=== PATIENT | male | born 1985 | race Caucasian/White ===

== ENCOUNTER 2019-10-23 22:36 | Outpatient (REF) | payer MEDICAID, SELFPAY ==
[2019-10-23 22:18] LABS: Hemoglobin A1C 5.4 % (4.5-6.2)
[2019-10-23 22:28] LABS: ALT 40 U/L (16-63); AST 36 U/L (15-37); Albumin 3.3 g/dL (3.4-5.0); Alkaline Phosphatase 77 U/L (46-116); Anion Gap 5.9 mmol/L (3-11); BUN 10 mg/dL (7-18); Bilirubin, Total 0.5 mg/dL (0.2-1.0); CO2 34.1 mmol/L (21.0-32.0); CREATININE 0.59 mg/dL (0.70-1.30); Calcium 8.8 mg/dL (8.5-10.1); Chloride 101 mmol/L (98-107); Glucose 89 mg/dL (74-106); Potassium 4.3 mmol/L (3.5-5.1); Sodium 141 mmol/L (136-145); Total Protein 7.8 g/dL (6.4-8.2)
== END 2019-10-23 22:56 ==
LOC: NCHCN 22:36
PROVIDERS: PCP Family Medicine; Visit Provider Family Medicine
DX: R73.09 Other abnormal glucose (principal); I10 Essential (primary) hypertension
CPT/HCPCS: 80053; 83036

== ENCOUNTER 2020-10-04 17:18 | Outpatient (REF) | payer MEDICAID, SELFPAY ==
[2020-10-04 21:43] LABS: ALT 29 U/L (16-63); AST 33 U/L (15-37); Albumin 3.2 g/dL (3.4-5.0); Alkaline Phosphatase 62 U/L (46-116); Anion Gap 5.6 mmol/L (3-11); BUN 12 mg/dL (7-18); Bilirubin, Total 0.5 mg/dL (0.2-1.0); CO2 31.4 mmol/L (21.0-32.0); CREATININE 0.67 mg/dL (0.70-1.30); Calcium 8.7 mg/dL (8.5-10.1); Chloride 99 mmol/L (98-107); Glucose 88 mg/dL (74-106); Potassium 4.3 mmol/L (3.5-5.1); Sodium 136 mmol/L (136-145); Total Protein 8.1 g/dL (6.4-8.2)
[2020-10-04 21:47] LABS: COMMENT (LAB VIEW ONLY) 128.07 mg/dL; Microalb ug/mg Crea 6.7 ug/mg Cr
[2020-10-04 21:51] LABS: Hemoglobin A1C 5.5 % (<5.7)
[2020-10-04 22:02] LABS: Vitamin D 25 Total 18.8 ng/ml (30-100)
== END 2020-10-04 17:38 ==
LOC: NCHCN 17:18
PROVIDERS: PCP Family Medicine; Visit Provider Family Medicine
DX: E55.9 Vitamin D deficiency, unspecified (principal); R73.09 Other abnormal glucose; I10 Essential (primary) hypertension; E66.01 Morbid (severe) obesity due to excess calories
CPT/HCPCS: 80053; 82306; 82043; 82570; 83036

== ENCOUNTER 2022-03-29 12:00 | Outpatient (REF) | payer MEDICAID, SELFPAY ==
[2022-03-29 14:45] LABS: HCT 44.5 % (40.0-50.0); HGB 13.6 g/dL (13.5-17.5); MCH 27.5 pg (27.0-33.0); MCHC 30.6 % (32.0-36.0); MCV 90 fL (80-95); MPV 9.8 fL (8.0-11.0); Platelet Count 239 10^3/uL (130-400); RBC 4.94 10^6/uL (4.36-5.78); RDW 13.4 % (11.8-14.1); RDW-SD 44.5 fL; WBC 5.43 10^3/uL (4.4-10.8)
[2022-03-29 15:09] LABS: ALT 36 U/L (16-63); AST 41 U/L (15-37); Albumin 3.3 g/dL (3.4-5.0); Alkaline Phosphatase 80 U/L (46-116); Anion Gap 7.5 mmol/L (3-11); BUN 14 mg/dL (7-18); Bilirubin, Total 0.7 mg/dL (0.2-1.0); CO2 33.5 mmol/L (21.0-32.0); CREATININE 0.7 mg/dL (0.70-1.30); Calcium 8.8 mg/dL (8.5-10.1); Calculated LDL 48 mg/dL (<100); Chloride 100 mmol/L (98-107); Cholesterol 118 mg/dL (<200); Glucose 92 mg/dL (74-106); HDL Cholesterol 61 mg/dL (40-60); Potassium 4.2 mmol/L (3.5-5.1); Sodium 141 mmol/L (136-145); Total Protein 7.9 g/dL (6.4-8.2); Triglyceride 45 mg/dL (<150)
[2022-03-29 15:53] LABS: Hemoglobin A1C 5.7 % (<5.7)
[2022-03-30 15:13] LABS: Vitamin D 25 Total 24.5 ng/mL (30-100)
== END 2022-03-29 12:01 | disposition home or self-care (01) ==
LOC: NCHCN 12:00
PROVIDERS: PCP Family Medicine; Visit Provider Family Medicine
DX: I10 Essential (primary) hypertension (principal)
CPT/HCPCS: 80053; 80061; 82306; 85027; 83036

== ENCOUNTER 2022-05-29 17:19 | Outpatient (REF) | payer MEDICAID, SELFPAY | END 2022-05-29 17:20 | disposition home or self-care (01) | LOC: NCHCN 17:19 | PROVIDERS: PCP Family Medicine; Visit Provider Family Medicine ==

== ENCOUNTER 2023-04-20 12:15 | Outpatient (REF) | payer MEDICAID, SELFPAY ==
[2023-04-20 21:23] LABS: Hemoglobin A1C 5.5 % (<5.7)
[2023-04-20 21:24] LABS: ALT 27 U/L (16-63); AST 36 U/L (15-37); Alkaline Phosphatase 88 U/L (46-116); BUN 15 mg/dL (7-18); Bilirubin, Total 0.5 mg/dL (0.2-1.0); CREATININE 0.8 mg/dL (0.70-1.30); Calcium 8.8 mg/dL (8.5-10.1); Chloride 98 mmol/L (98-107); Estimated GFR 116.17 (mL/min/1.73m2); Glucose 97 mg/dL (74-106); Potassium 4.3 mmol/L (3.5-5.1); Sodium 135 mmol/L (136-145); Total Protein 8.3 g/dL (6.4-8.2)
[2023-04-20 22:03] LABS: Vitamin D 25 Total 50.1 ng/mL (30-100)
== END 2023-04-20 12:16 | disposition home or self-care (01) ==
LOC: NCHCN 12:15
PROVIDERS: PCP Family Medicine; Visit Provider Family Medicine
DX: R73.09 Other abnormal glucose (principal); I10 Essential (primary) hypertension; E55.9 Vitamin D deficiency, unspecified; E66.01 Morbid (severe) obesity due to excess calories
CPT/HCPCS: 80053; 82306; 83036

== ENCOUNTER 2024-06-20 16:35 | Outpatient (REF) | payer MEDICAID, SELFPAY ==
[2024-06-20 16:15] LABS: ALT 17 U/L (16-63); AST 29 U/L (15-37); Albumin 2.8 g/dL (3.4-5.0); Alkaline Phosphatase 96 U/L (46-116); Anion Gap 5.8 mmol/L (3-11); BUN 24 mg/dL (7-18); Bilirubin, Total 0.49 mg/dL (0.2-1.0); CO2 30.2 mmol/L (21.0-32.0); CREATININE 1.1 mg/dL (0.70-1.30); Calcium 9.2 mg/dL (8.5-10.1); Chloride 100 mmol/L (98-107); Estimated GFR 87.57 (mL/min/1.73m2); Glucose 102 mg/dL (74-106); Potassium 4.6 mmol/L (3.5-5.1); Sodium 136 mmol/L (136-145); Total Protein 8.2 g/dL (6.4-8.2)
[2024-06-20 16:37] LABS: Hemoglobin A1C 5.7 % (<5.7)
--- OUTSIDE RECORDS SUMMARY | 2024-06-20 16:53 | XMS_ITS | Continuity of Care Document ---
Author Organization [place] - [facility] Address [address] [place] [address] Assessment No assessment recorded. Plan of Treatment Reminders Order Date Submit Date Provider Last Modified By Organization Details Last Modified Time Details Appointments Nurse Visit 20 2023 10:00A M Not available Not available Not available Lab venipunct ure 2023 024 [email or web address] Not available 06/20/2024 13:46:29 Referral None recorded. Procedures None recorded. Surgeries None recorded. Imaging None recorded. Medication Orders None recorded. Patient TargetsNo targets recorded. Patient InstructionsNo instructions recorded. Reason for Referral None Reported. Problems Name Status Onset Date Resolution Date Notes Provider Name and Address Organization Details Recorded Time Severe obesity Active 2008 Problem Code: E66.01; Problem Code Type: ICD-10; Not Available [facility] 3 05:51:33 Essential hypertension Active 200804/27/2023 - Comments only - Gwen Zuñiga MD - I did not have a blood pressure cuff with me today. Will check at follow-up in 1 month. Continue current medication. Problem Code: I10; Problem Code Type: ICD-10; Not Available [facility] 3 05:51:33 Generalized anxiety disorder Active 201305/29/2022 - Comments only - Gwen Zuñiga MD - With generalized social phobia. Reports good results with sertraline. Still not leaving the apartment much but not interested in connecting with a therapist at this time. Problem Code: F41.1; Problem Code Type: ICD-10; Not Available [facility] 3 05:51:33 Localized adiposity Active 201301/24/2023 - Comments only - Gwen Zuñiga MD - With intermittent ischemia associated with any prolonged sitting in a normal chair or standing, which results in dangling of this panniculus. Reviewed long-term benefits of weight loss agent in light of his very severe obesity and he agreed to try Trulicity. Problem Code: E65; Problem Code Type: ICD-10; Not Available [facility] 3 05:51:33 Pain of left hip joint Active 2014 Problem Code: M25.552; Problem Code Type: ICD-10; Not Available [facility] 3 05:51:33 Acute upper respiratory infection Completed 201406/24/2015 Problem Code: J06.9; Problem Code Type: ICD-10; Not Available [facility] 3 05:51:34 Generalized social phobia Active 201410/07/2021 - Unchanged - Gwen Zuñiga MD - See above. Problem Code: F40.11; Problem Code Type: ICD-10; Not Available [facility] 3 05:51:34 Dysuria Completed 201606/26/2017 Problem Code: R30.0; Problem Code Type: ICD-10; Not Available [facility] 3 05:51:34 Blood glucose outside reference range Active 201804/27/2023 - Improved - Gwen Zuñiga MD - A1c in the normal range this time around. Normal renal function. Reviewed lab results. Vitamin D has also normalized. Will reduce high-dose vitamin D replacement to weekly from 3 times a week. Problem Code: R73.09; Problem Code Type: ICD-10; Not Available [facility] 3 05:51:34 Pain in thoracic spine Active 201810/24/2019 - Comments only - Gwen Zuñiga MD - And left leg pain. Advised consideration of home PT which he was reluctant to consider. Problem Code: M54.9; Problem Code Type: ICD-10; Not Available [facility] 3 05:51:34 Vitamin D deficiency Active 201804/27/2023 - Comments only - Gwen Zuñiga MD - See above. Problem Code: E55.9; Problem Code Type: ICD-10; Not Available [facility] 3 05:51:34 History of fall Active 201911/02/2020 - Comments only - Gwen Zuñiga MD - discussed fall prevention strategies. Problem Code: Z91.81; Problem Code Type: ICD-10; Not Available [facility] 3 05:51:35 Counseling Active 202010/07/2021 - Comments only - Gwen Zuñiga MD - he rec'd Covid booster (Moderna) and flu vaccine today. Problem Code: Z71.89; Problem Code Type: ICD-10; Not Available [facility] 3 05:51:35 Pain of left knee joint Completed 202010/14/2021 10/07/2021 - Comments only - Gwen Zuñiga MD - continue strengthening exercises. Reviewed indications for re-evaluation . Problem Code: M25.562; Problem Code Type: ICD-10; Not Available [facility] 3 05:51:35 Hyperlipidemi a screening Active 2021 Problem Code: Z13.220; Problem Code Type: ICD-10; Not Available [facility] 3 05:51:35 COVID-19 Completed 202103/09/2022 03/01/2022 - Comments only - Gwen Zuñiga MD - He is fortunately had a relatively mild infection. Is outside of the window for treatment. Advised booster dose when he feels ready, and earlier notification of any recurrent infections. Problem Code: U07.1; Problem Code Type: ICD-10; Not Available [facility] 3 05:51:35 Disorder of plasma protein metabolism Active 202105/29/2022 - Comments only - Gwen Zuñiga MD - Diet does not sound like it is lacking in protein by description. Will check urine for proteinuria. Problem Code: E88.09; Problem Code Type: ICD-10; Not Available [facility] 3 05:51:36 Dysuria Completed 202201/30/2023 01/24/2023 - Improved - Gwen Zuñiga MD - He will complete full week course of Bactrim. Reviewed indications for urine culture including return of symptoms. Problem Code: R30.0; Problem Code Type: ICD-10; Not Available [facility] 3 05:51:36 Ischemic infarction of muscle Active 2022 Problem Code: M62.252; Problem Code Type: ICD-10; Not Available [facility] 3 05:51:36 Disorder of tooth development Active 2022 Problem Code: K00.9; Problem Code Type: ICD-10; Not Available [facility] 3 05:51:36 Periapical abscess Active 202207/04/2023 - Comments only - Gwen Zuñiga MD - We will treat again with penicillin. Strongly urged follow-up dental care. He states they have told him he needs to see an oral surgeon, but he does not feel he can get to 1. He would like to focus on weight loss and then we access dental care. Problem Code: K04.7; Problem Code Type: ICD-10; Not Available [facility] 3 05:51:36 Screening for disorder Completed 201603/13/2019 Problem Code: Z13.9; Problem Code Type: ICD-10; Not Available [facility] 3 05:51:40 Hypertensive disorder Completed 200808/01/2023 Not Available [facility] 3 05:51:42 Morbid obesity Completed 200808/01/2023 Not Available [facility] 3 05:51:43 Impaired glucose tolerance Completed 201703/13/2019 Problem Code: R73.02; Problem Code Type: ICD-10; Not Available [facility] 3 05:51:54 Acute viral pharyngitis Active [address], [place], [address] , [facility] 4 14:51:27 Atopic dermatitis Active [address], [place], [address] , [facility] 4 17:56:32 Notes:*Problem Name: Large M ass L Knee/leg *ICD-10 Codes: *Problem Status: inactive *Comments: 02/19/2017 - Comments only - Gwen Zuñiga MD - with intermittent torsion of its blood supply triggering acute ischemia and related pain. Not amenable to surgical repair. Discussed indications for emergency eval. *Note Date: 08/27/2014 Problem Notes None recorded. Medical Equipment None Reported. Medications Name Sig Start Date Stop Date Status Note LastModified by Organization Details LastModified Time lisinopril 20 mg tablet 1TAB QD 08/27 completed Not Available Not Available Not Available sertraline 100 mg tablet Take 1 tablet by mouth every day 2023 active Not Available Not Available Not Avai lable penicillin V potassium 500 mg tablet 1 tablet by mouth twice a day 07/14 completed Not Available Not Available Not Available amlodipine 5 mg tablet 1TAB daily 12/09 completed Not Available Not Available Not Available nortriptyli ne 25 mg capsule take 1 cap at bedtime 06/04 completed Not Available Not Available Not Available oxycodone-a cetaminophe n 5 mg-325 mg tablet 1 qid 08/03 completed Not Available Not Available Not Available amlodipine 10 mg tablet Take 1 tablet by mouth once a day 2023 active Not Available Not Available Not Avai lable lisinopril 10 mg tablet 1 QD 08/03 completed Not Available Not Available Not Available betamethaso ne dipropionat e 0.05 % topical cream APPLY THIN LAYER TOPICALLY TO THE AFFECTED AREA DAILY active Not Available Not Available No t Available lisinopril 20 mg-hydrochl orothiazide 25 mg tablet Take 1 tablet by mouth once a day 2023 active Not Available Not Available Not Avai lable aspirin 81 mg tablet 1TAB daily 2013 active Not Available Not Available Not Avai lable Aspir-81 mg tablet,raysa yed release Take 1 tab by mouth daily 10/24 completed Not Available Not Available Not Available Vitamin D2 1,250 mcg (50,000 unit) capsule Take 1 capsule by mouth once a week 2023 active Not Available Not Available Not Avai lable metformin ER 500 mg tablet,exte nded release 24 hr Take 1 tab by mouth daily 10/24 completed Not Available Not Available Not Available sertraline 50 mg tablet Take 1tablet by mouth daily 2014 active Not Available Not Available Not Avai lable Bactrim DS 800 mg-160 mg tablet 1 tablet by mouth twice a day 01/27 completed Not Available Not Available Not Available amlodipine 10 mg-benazepr il 20 mg capsule Take 1 by mouth daily 2014 active Not Available Not Available Not Avai lable Acidophilus Probiotic Blend 175 mg capsule 1 tab qd 07/11 completed Not Available Not Available Not Available Victoza 3-Andrea 0.6 mg/0.1 mL (18 mg/3 mL) subcutaneou s pen injector Inject 0.6 mg subcutane ously once a day for 4 weeks, then increase to 1.2 mg daily for 4 weeks, then 1.8 mg daily. 07/04 completed Not Available Not Available Not Available Trulicity 0.75 mg/0.5 mL subcutaneou s pen injector Inject 1 pen injector subcutane ously once a week for four weeks, before increasin g dose 02/05 completed Not Available Not Available Not Available TechLITE Pen Needle 32 gauge x 1/4 Use 1 needle subcutane ously once a day active Not Available Not Available No t Available Ozempic 0.25 mg or 0.5 mg (2 mg/1.5 mL) subcutaneou s pen injector Inject 0.25 mg subcutane ously once a week x 4 weeks. THEN, increase to 0.5 mg once a week x 4 weeks 06/09 completed Not Available Not Available Not Available Rybelsus 14 mg tablet Take 1 tablet by mouth once a day start after completin g 1 month of 3mg and 1 month of 7mg if no significa nt GI side effects 06/01 completed Not Available Not Available Not Available Rybelsus 7 mg tablet Take 1 tablet by mouth once a day 06/01 completed Not Available Not Available Not Available Rybelsus 3 mg tablet Take 1 tablet by mouth once a day 06/01 completed Not Available Not Available Not Available Ozempic 1 mg/dose (4 mg/3 mL) subcutaneou s pen injector Inject 1 mg subcutane ously once a week . Start this AFTER completin g the lower dose Ozempic rx 06/09 completed Not Available Not Available Not Available Ozempic 0.25 mg or 0.5 mg (2 mg/3 mL) subcutaneou s pen injector Inject 0.25 mg subcutane ously once a week x 4 weeks, then increase to 0.5 mg once weekly 04/26 completed Not Available Not Available Not Available Vitals None Recorded Social History None recorded. Functional Status None recorded. Mental Status None recorded. Family History Relationship Description Onset Age of this Age Resolved Age Notes Notes:*Problem: Strong famil y history of obesity and anxiety. One brother with history of alcohol dependency. Family History of: Medical History No medical history recorded. Immunizations Vaccine Type Date Status Provider Name and Address Organization Details Recorded Time Tdap 05/29/2022 completed Not Available [facility] 05:41:34 Influenza, split virus, trivalent, preservative 09/24/2015 completed Not Available [facility] 09/14/2023 05:41:35 Influenza, split virus, quadrivalent, PF 10/07/2021 completed Not Available [facility] 09/14/2023 05:41:35 COVID-19, mRNA, LNP-S, PF, 100 mcg/0.5mL dose or 50 mcg/0.25mL dose 03/29/2022 completed Not Available [facility] 09/14/20 05:41:36 COVID-19, mRNA, LNP-S, PF, 100 mcg/0.5mL dose or 50 mcg/0.25mL dose 10/07/2021 completed Not Available [facility] 09/14/20 05:41:37 COVID-19 vaccine, vector-nr, rS-Ad26, PF, 0.5 mL 04/15/2021 completed Not Available [facility] 09/14/2023 05:41:37 Past Encounters Encounter ID Performer Location Encounter Start Date Encounter Closed Date Diagnosis/Indication Diagnosis SNOMED-CT Code [id number] Lo Wisdom [address] [address] 06/20/2024 13:43:57 06/20/2024 14:48:00 Essential hypertension [id number] Diabetes m ellitus screening [id number] Health Concerns Section Related Observation LastModified by Organization Detai ls LastModified Time None Recorded Concern Status LastModified by Organization Details LastModified Time None Recorded Payers Encounter Date Sequence Insurance Name Policy Number Policy Jeffery Covered Member ID Jeffery Member ID Guarantor Name 06/20/2024 1 [facility] (MEDICAID) Melquiades Elias [id number] Melquiades Elias
--- OUTSIDE RECORDS SUMMARY | 2024-06-20 16:53 | XMS_ITS | Encounter Summary ---
Author Organization [facility] Address [address] [place] [address] Care Team Providers Care Marketing Officer Name Role Phone Unknown, Provider Primary Care Provider [phone] Encounter Details Date Type Department Care Team (Late st Contact Info) Description 12/25/2014 Results Only Imaging [facility] Surgical Oncology - [address] [id number] Galen Hameed MD [address] [facility], [address] [place] [address] Social History Tobacco Use Types Packs/Day Years Used Date Smoking Tobacco: Never Assessed Sex and Gender Information Value Date Recorded Sex Assigned at Not on file Gender Identity Not on file Sexual Orientation Not on file documented as of this encounter Plan of Treatment Not on file documented as of this encounter Procedures Procedure Name Priority Date/Time Associated Diagnosis Comments [facility] MIS (SOFT TISSUE) - BREAST [facility] ONLY 12/28/2014 14:21 EST documented in this encounter Results * [facility] (SOFT TISSUE) - [facility] ONLY (12/28/2014 14:21 EST) Anatomical Region Laterality Modality Other 12/28/2014 14:2 1 EST Narrative 12/28/2014 14:21 EST See Notes Tab. Procedure Note SKIDDER LEVER OPERATOR, IMAGING - 12/28/2014 See Notes Tab. Galen Hameed MD IMG US ORDERABLES documented in this encounter Visit Diagnoses Not on filedocumented in this encounter Care Teams Marketing Officer Relationship Specialty Start Date End Date Unknown, Provider, PCP - General 10/19/11 12/27/14 documented as of this encounter
--- OUTSIDE RECORDS SUMMARY | 2024-06-20 16:53 | XMS_ITS | Clinical Summary ---
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 Overview: ICD10 Update Auto Replacement Social History Tobacco Use Types Packs/Day Years Used Date Smoking Tobacco: Never Interpersonal Safety Answer Date Record ed Physically Hurt Never 06/06/2020 Verbally Threaten Not on file 06/06/2020 Sex and Gender Information Value Date Recorded Sex Assigned at Not on file Gender Identity Not on file Sexual Orientation Not on file Obstetrics History Last Filed Vital Signs Vital Sign Reading Time Taken Comments Blood Pressure - - Pulse - - Temperature - - Respiratory Rate - - Oxygen Saturation - - Inhaled Oxygen Concentration - - Weight - - Height 190.3 cm (6' 2.92) 12/28/2014 1303 EST Body Mass Index - - Plan of Treatment Health Maintenance Due Date Last Done Comments Hepatitis C Screen 1985 Hepatitis B Vaccine (1 of 3 - 19+ 3-dose series) 03/31 COVID-19 Vaccine (2022-24 season) 2023 Care Teams Quill Buncher And Sorter Relationship Specialty Start Date End Date Gwen Zuñiga MD [address] [place] [id number] PCP - General 12/28/14
--- OUTSIDE RECORDS SUMMARY | 2024-06-20 16:53 | XMS_ITS | Encounter Summary ---
Author Organization [facility] Address [address] [place] [address] Care Team Providers Care Contract Attorney Name Role Phone Unknown, Provider Primary Care Provider [phone] Gwen Zuñiga MD Primary Care Provider [phone] Encounter Details Date Type Department Care Team (Late st Contact Info) Description 10/20/2011 Documentation Visit [facility] Vascular Surgery - [address] [id number] Carl Zhu MD [address] [facility], [address] [place] [address] Social History Tobacco Use Types Packs/Day Years Used Date Smoking Tobacco: Never Assessed Sex and Gender Information Value Date Recorded Sex Assigned at Not on file Gender Identity Not on file Sexual Orientation Not on file documented as of this encounter Progress Notes * Carl Zhu MD - 10/24/2011 1431 EST DIVISION OF VASCULAR SURGERY PROGRESS/FOLLOWUP NOTE - 10/20/2011 Melquiades Elias did not come for this scheduled vascular surgery appointment today. Electronically Signed by Carl Zhu MD 10/31/2011 14:04 Carl Zhu MD journalism instructor Vascular Surgery - Carl Zhu MD - JG Job ID: SM Doc ID: [id number] Ext Doc ID: [id number] cc: documented in this encounter Plan of Treatment Not on file documented as of this encounter Visit Diagnoses Not on filedocumented in this encounter Care Teams Contract Attorney Relationship Specialty Start Date End Date Unknown, Provider, PCP - General 10/19/11 12/27/14 Gwen Zuñiga MD [address] [place] [phone] PCP - General 12/28/14 documented as of this encounter
--- OUTSIDE RECORDS SUMMARY | 2024-06-20 16:53 | XMS_ITS | Encounter Summary ---
Author Organization [facility] Address [address] [place] [address] Care Team Providers Care Tying Machine Operator Name Role Phone wGen Zuñiga MD Primary Care Provider [phone] Encounter Details Date Type Department Care Team (Late st Contact Info) Description 12/28/2014 Results Only [facility] Surgical Oncology - [address] [phone] Brinda Hameed MD [address] [facility], [address] [place] [address] Social History Tobacco Use Types Packs/Day Years Used Date Smoking Tobacco: Never Sex and Gender Information Value Date Recorded Sex Assigned at Not on file Gender Identity Not on file Sexual Orientation Not on file documented as of this encounter Plan of Treatment Not on file documented as of this encounter Procedures Procedure Name Priority Date/Time Associated Diagnosis Comments SURGICAL PATHOLOGY Routine 12/28/2014 13 :57 EST documented in this encounter Results * SURGICAL PATHOLOGY (12/28/2014 13:57 EST) Pathology Report: SURGICAL PATHOLOGY REPORT Reports generated via electronic interface contain original data; however they are lacking the format of the original report. Caution should be taken when reading/interpreting unformatted reports. Name: ? MIGUEL ELIAS ? Accession #: ? [id number] ? : ? 1985 (Age: 29) ??M ? Collect Date: ? 12/28/2014 ? Location: ? [facility] ? Receive Date: ? 12/28/2014 ? Provider: BRINDA HAMEED MD Copy to: ? Final Pathologic Diagnosis: THIGH, LEFT, SOFT TISSUE MASS, BIOPSY: - Fibroadipose connective tissue. See comment. Comment: Deeper levels and immunohistochemical staining was performed on this case to further characterize the lesion. ??Positive and negative controls stained appropriately. The differential diagnosis includes massive edema associated with morbid obesity, a lesion which can mimic sarcoma clinically. Clinical correlation is advised to rule out sampling artifact. No evidence of malignancy is identified. Deeper levels have been examined. Alpha-smooth muscle actin (1A4, Sigma)(1): Negative in spindle cells. Beta Catenin (14/Beta-Catenin, [employer])(1): Negative in spindle cells. ? NOTE: ??One or more of the reagents used in immunohistochemical testing in this case may not have been cleared or approved by the U.S. Food and Drug Administration (FDA). ??The FDA has determined that such clearance or approval is not necessary. ??These tests are used for clinical purposes. ??They should not be regarded as investigational or for research. ??These reagents' performance characteristics have been determined by the [facility]. ??This laboratory is certified under the Clinical Laboratory Improvement Amendments of 1988 (CLIA-88) as qualified to perform high complexity clinical laboratory testing. ?? Document reviewed and electronically signed by: REID UGARTE MD Report ??Date: 12/30/2014 13:57 By the signature above, the attending physician certifies that he/she has personally conducted a gross and/or microscopic examination of the described specimens and rendered or confirmed the above diagnosis. Specimen(s) Received: Left thigh Clinical History: Large soft tissue mass left thigh; morbidly obese; ? normal fat vs. tumor; clinical diagnosis code: 238.1 Gross Description: ? Received in formalin labelled with proper patient identification (initials F, L) and core biopsy left thigh mass soft tissue are five pink-white, focally red tissue cores (0.6 cm to 1.6 cm in length, and each 0.2 cm to 0.3 cm in diameter). Entirely submitted in 1 and 2. Christy French 12/28/2014 2:13 PM End of Report [facility] 12/28/2014 13:5 7 EST 12/28/2014 13:57 EST Brinda Hameed MD PATHOLOGY ORDERABLES Performing Organization Address City/State/[facility] Co de Phone Number [facility] [address] [place] [address] documented in this encounter Visit Diagnoses Not on filedocumented in this encounter Care Teams Tying Machine Operator Relationship Specialty Start Date End Date Gwen Zuñiga MD [address] [place] [phone] PCP - General 12/28/14 documented as of this encounter
--- OUTSIDE RECORDS SUMMARY | 2024-06-20 16:53 | XMS_ITS | Encounter Summary ---
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) Social History Tobacco Use Types Packs/Day Years Used Date Smoking Tobacco: Never Sex and Gender Information Value Date Recorded Sex Assigned at Not on file Gender Identity Not on file Sexual Orientation Not on file documented as of this encounter Plan of Treatment Scheduled Orders Name Type Priority Associated Diagnoses Orde r Schedule SURGICAL PATHOLOGY- ORDER ONLY Pathology Routine Neoplasm of uncertain behavior of connective and other soft tissue Ordered: 12/28/2014 documented as of this encounter Visit Diagnoses Diagnosis Neoplasm of uncertain behavior of connective and other soft tissue- Primary documented in this encounter Care Teams Intelligence Chief Relationship Specialty Start Date End Date Gwen Zuñiga MD [address] [place] [phone] PCP - General 12/28/14 documented as of this encounter
--- OUTSIDE RECORDS SUMMARY | 2024-06-20 16:53 | XMS_ITS | Encounter Summary ---
Author Organization [facility] Address [address] [place] [address] Care Team Providers Care Well Cleaner Name Role Phone Unknown, Provider Primary Care Provider [phone] Gwen Zuñiga MD Primary Care Provider [phone] Reason for Visit * Reason Onset Date Comments New Patient Visit 12/09/2014 soft tissue BX left leg Appointment Related 12/28/2014 12/28/14 Encounter Details Date Type Department Care Team (Late st Contact Info) Description 12/09/2014 Telephone [facility] Surgical Oncology - [facility] [address], [place] [id number] Gwen Zuñiga MD [address] [place] [phone] New Patient Visit (soft tissue BX left leg ); Appointment Related (12/28/14) Social History Tobacco Use Types Packs/Day Years Used Date Smoking Tobacco: Never Assessed Sex and Gender Information Value Date Recorded Sex Assigned at Not on file Gender Identity Not on file Sexual Orientation Not on file documented as of this encounter Miscellaneous Notes * Telephone Encounter - Bailey JordanFortino - 12/28/2014 0950 EST 12/28/14@9:40am: Spoke with Rosa at Dr. Zuñiga's office. Per Rosa patient needs to have consultation with Dr. Hameed, as Dr. Zuñiga is not going to be preforming any procedures on patient. I will call patient and confirm need for appointment with Dr. Hameed. Rosa agreeable to plan. 12/28/14@9:50am: Spoke with patient. Confirmed need for appointment with Dr. Hameed. Patient agreeable to coming in for appointment today. Confirmed directions to clinic. * Telephone Encounter - Verona Yates - 12/28/2014 0812 EST Reason for Call: New Patient Visit; and Appointment Related Summary/Symptoms: Pt unsure if Dr. Zuñiga has consulted with Dr. Hameed. Per pt if Dr. Zuñiga is comfortable performing the surgery than 12/28/14 appt may not be needed. Onset and Duration? 12/28/14 at 1:30 pm Verona Yates 12/28/2014 8:13 * Telephone Encounter - Bailey Jordan - 12/14/2014 0856 EST 12/14/14@8:55am: Spoke with patient. Referral received from Dr. Gwen Zuñiga. Patient scheduled for appointment with Dr. Hameed tomorrow at 11:30am. Per patient tomorrow does not work. Patient offered appointment for 12/28 at 1:30pm. Patient agreeable to appointment date and time. Patient given directions to clinic. I will mail letter with appointment and directions to clinic. * Telephone Encounter - Bailey Jordan - 12/11/2014 1008 EST 12/11/14@10:10am: Spoke with Mercedes at Gwen Zuñiga's office as Rosa is off on Fridays. I informed her of appointment for Melquiades with Dr. Hameed on 12/15 at 11:30am. Mercedes gave me patient's phone number and confirmed I should call him directly with the appointment. 12/11/14@10:20AM: Left voicemail message for patient. Referral received from Dr. Zuñiga. Patient given my direct phone number to call to discuss referral. * Telephone Encounter - Lencho Fowler. - 12/09/2014 1448 EST Please call Usha to schedule NPV. Notes to 0547. documented in this encounter Plan of Treatment Not on file documented as of this encounter Visit Diagnoses Not on filedocumented in this encounter Care Teams Well Cleaner Relationship Specialty Start Date End Date Unknown, MD Roger PCP - General 10/19/11 12/27/14 Gwen Zuñiga MD [address] [place] [phone] PCP - General 12/28/14 documented as of this encounter
--- OUTSIDE RECORDS SUMMARY | 2024-06-20 16:53 | XMS_ITS | Encounter Summary ---
Author Organization [facility] Address [address] [place] [address] Care Team Providers Care Educational Aid Name Role Phone Gwen Zuñiga MD Primary Care Provider [phone] Reason for Visit * Reason Comments New Patient Visit * Consult (Routine) - Closed Specialty Diagnoses / Procedures Referred By Myriam tobin Referred To Contact Surgical Oncology Diagnoses Leg mass Soft tissue mass Gwen Zuñiga MD [address] [place] [phone] Galen Hameed MD [address] [place] [phone] Referral ID Status Reason Start Date Expiration Date Visits Re quested Visits Authorized [id number] Closed 1 1 Encounter Details Date Type Department Care Team (Late st Contact Info) Description 12/28/2014 13:30 EST Office Visit [facility] Surgical Oncology - [address] [address] Galen Hameed MD [address] [place] [phone] 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) Social History Tobacco Use Types Packs/Day Years Used Date Smoking Tobacco: Never Sex and Gender Information Value Date Recorded Sex Assigned at Not on file Gender Identity Not on file Sexual Orientation Not on file documented as of this encounter Last Filed Vital Signs Vital Sign Reading Time Taken Comments Blood Pressure - - Pulse - - Temperature - - Respiratory Rate - - Oxygen Saturation - - Inhaled Oxygen Concentration - - Weight - - Height 190.3 cm (6' 2.92) 12/28/2014 1303 EST Body Mass Index - - documented in this encounter Discharge Diagnoses Diagnosis 238.1 UNCERTAIN BEHAV NEOPL SOFT TISSUE[ICD-9-CM] documented in this encounter Progress Notes * Galen Hameed MD - 12/28/2014 1424 EST [facility] BREAST CANCER PROGRAM NEW PATIENT EVALUATION - 12/28/2014 PROBLEM: The patient seen for evaluation of a soft tissue mass on the left thigh. SUBJECTIVE: The patient is a 29-year-old white man who is morbidly obese, weighing over 600 pounds.He states that he has had a soft tissue mass on his left inner thigh since 2003. Started off about the size of his thumb and has gradually increased in size to the point now where it is quite massive. He denies any significant pain in the area but occasionally it is getting somewhat red, does lead to some issues with his walking due to its size. PAST MEDICAL HISTORY: Significant for the morbid obesity, hypertension, anxiety disorder. The patient has had no previous surgeries. MEDICATIONS: Amlodipine 10 mg a day. Sertraline 5 mg a day. Lisinopril/Hydrochlorothiazide 10 mg/10 mg once a day. ALLERGIES: He has no known drug allergies. SOCIAL HISTORY: Does not smoke, never has. Denies drinking alcohol. REVIEW OF SYSTEMS: Denies fevers, chills. Does get a little bit of discomfort again when this area becomes red and swollen. Has some fatigue. Has not had any weight loss, no loss of appetite. No eyes, ears, nose, mouth or throat problems. Denies chest pain or chest pressure, shortness of breath. Nonausea, vomiting, no GI, problems. No musculoskeletal, thyroid, diabetes, blood clotting or bleeding problems. Does have a history of depression, anxiety and occasional headaches. FAMILY HISTORY: He is not aware of any tumors in the family. OBJECTIVE: On examination, the patient is a massively obese white man in no acute distress. Head and neck exam reveals no visible abnormalities. In the left leg there is a large pedunculated appearing mass coming off the medial inner thigh. This is fairly smooth feeling, somewhat firm and it measures 20 to 30 cm in dimension. It is nontender to palpation. He has no sensation over the area. There is no other associated soft tissue masses on the lower extremities. DIAGNOSTIC DATA: Ultrasound evaluation of this area demonstrates what looks like fatty tissue with normal architecture. No obvious tumor is identified by ultrasound. Given the size of this, most likely this represents an area of hypertrophied fatty tissue or a pannus arising from medial thigh. Cannot completely rule out, however, a low-grade neoplastic process. To do that it would be recommended that a core needle biopsy be performed. The patient was in agreement with that and signed a consent for doing that. The patient's medial thigh was therefore prepped in a sterile fashion, 1% lidocaine was used as a local anesthetic. Using a 15 blade, a small malou was made in the skin using a 14-gaugeVacora vacuum-assisted core biopsy device, 5 separate core biopsies were obtained from the center of this mass. There were good specimens with each of these. These were put immediately into formalin solution and then once completed, the specimens were sent to pathology for pathologic evaluation. Pre ssure was held on the area, and a sterile dressing was placed with some Neosporin ointment. The patient tolerated the procedure without any problems. PLAN: The plan is to notify him of the results of the biopsy when it becomes available. If this confirms a benign process, then it would be likely recommended that we simply observe the area. Given the patient's comorbidities, doing a surgical resection of this would be a very high-risk procedure. If this is something that is more suspicious, then we would need to discuss that and possible interventions. My hunch however, is that this is going to be a benign process. Galen Hameed MD 01 55 PM - Galen Hameed MD cn Dictation ID: [id number] cc: Gwen Zuñiga MD, [address] [address] * Galen Hameed MD - 12/28/2014 1401 EST This office note has been dictated. documented in this encounter Plan of Treatment Not on file documented as of this encounter Visit Diagnoses Diagnosis Neoplasm of uncertain behavior of connective and other soft tissue- Primary documented in this encounter Historical Medications * This list may reflect changes made after this encounter. Medication Sig Dispensed Refills Start Date End Date LISINOPRIL-HYDROCHLOROTHIA ZIDE ORAL Take by mouth daily amLODIPine (NORVASC) 10 mg tablet Take 10 mg by mouth daily SERTRALINE HCL (ZOLOFT ORAL) Take by mouth daily added in this encounter Care Teams Educational Aid Relationship Specialty Start Date End Date Gwen Zuñiga MD [address] [place] [phone] PCP - General 12/28/14 documented as of this encounter
--- OUTSIDE RECORDS SUMMARY | 2024-06-20 16:53 | XMS_ITS | Encounter Summary ---
Author Organization [facility] Address [address] [place] [address] Care Team Providers Care Assembler Piano Name Role Phone Gwen Zuñiga MD Primary Care Provider [phone] Reason for Visit * Reason Onset Date Comments Biopsy Results 12/31/2014 Encounter Details Date Type Department Care Team (Late st Contact Info) Description 12/31/2014 Telephone [facility] Surgical Oncology - [facility] [address] [place], [place] [phone] Ayleen Gonzalez RN [address] [place] [address] Biopsy Results Social History Tobacco Use Types Packs/Day Years Used Date Smoking Tobacco: Never Sex and Gender Information Value Date Recorded Sex Assigned at Not on file Gender Identity Not on file Sexual Orientation Not on file documented as of this encounter Miscellaneous Notes * Telephone Encounter - Ayleen Gonzalez - 12/31/2014 1712 EST Spoke to Melquiades and gave him the results of his pathology. AYLEEN GONZALEZ RN documented in this encounter Plan of Treatment Not on file documented as of this encounter Visit Diagnoses Not on filedocumented in this encounter Care Teams Assembler Piano Relationship Specialty Start Date End Date Gwen Zuñiga MD [address] [place] [phone] PCP - General 12/28/14 documented as of this encounter
--- OUTSIDE RECORDS SUMMARY | 2024-06-20 16:53 | XMS_ITS | Referral Summary ---
Author Organization [facility] Address [address] [place] [address] Care Team Providers Care Tank Storage Supervisor Name Role Phone Gwen Zuñiga MD Primary Care Provider [phone] Allergies No known active allergies Medications Medication [...] on file Sexual Orientation Not on file Last Filed Vital Signs Vital Sign Reading Time Taken Comments Blood Pressure - - Pulse - - Temperature - - Respiratory Rate - - Oxygen Saturation - - Inhaled Oxygen Concentration - - Weight - - Height 190.3 cm (6' 2.92) 12/28/2014 1303 EST Body Mass Index - - Plan of Treatment Not on file Care Teams Tank Storage Supervisor Relationship Specialty Start Date End Date Gwen Zuñiga MD [address] [place] [phone] PCP - General 12/28/14
--- OUTSIDE RECORDS SUMMARY | 2024-06-20 16:53 | XMS_ITS | Continuity of Care Document ---
Author Organization [place] - [facility] Address [address] [place] [address] Assessment No assessment recorded. Plan of Treatment Reminders Order Date Submit Date Provider Last Modified By Organization Details Last Modified Time Details Appointments Nurse Visit 2023 10:00A M Not available Not available Not available Lab None recorded. Referral None recorded. Procedures None recorded. Surgeries None recorded. Imaging None recorded. Medication Orders betametha sone dipropion ate 0.05 % topical cream 2023 024 [id number], [address], [place], [place], [id number], 04/29/2024 17:57:57 Patient TargetsNo targets recorded. Patient InstructionsNo instructions recorded. Reason for Referral None Reported. Problems Name Status Onset Date Resolution Date Notes Provider Name and Address Organization Details Recorded Time Severe obesity Active 2008 Problem Code: E66.01; Problem Code Type: ICD-10; Not Available [facility] 3 05:51:33 Essential hypertension Active 200804/27/2023 - Comments only - Gwen Pelayo MD - I did not have a blood pressure cuff with me today. Will check at follow-up in 1 month. Continue current medication. Problem Code: I10; Problem Code Type: ICD-10; Not Available [facility] 05:51:33 Generalized anxiety disorder Active 201305/29/2022 - Comments only - Gwen Pelayo MD - With generalized social phobia. Reports good results with sertraline. Still not leaving the apartment much but not interested in connecting with a therapist at this time. Problem Code: F41.1; Problem Code Type: ICD-10; Not Available [facility] 3 05:51:33 Localized adiposity Active 201301/24/2023 - Comments only - Gwen Pelayo MD - With intermittent ischemia associated with any prolonged sitting in a normal chair or standing, which results in dangling of this panniculus. Reviewed long-term benefits of weight loss agent in light of his very severe obesity and he agreed to try Trulicity. Problem Code: E65; Problem Code Type: ICD-10; Not Available [facility] 3 05:51:33 Pain of left hip joint Active 2014 Problem Code: M25.552; Problem Code Type: ICD-10; Not Available [facility] 3 05:51:33 Acute upper respiratory infection Completed 201406/24/2015 Problem Code: J06.9; Problem Code Type: ICD-10; Not Available [facility] 3 05:51:34 Generalized social phobia Active 201410/07/2021 - Unchanged - Gwen Pelayo MD - See above. Problem Code: F40.11; Problem Code Type: ICD-10; Not Available [facility] 3 05:51:34 Dysuria Completed 201606/26/2017 Problem Code: R30.0; Problem Code Type: ICD-10; Not Available [facility] 3 05:51:34 Blood glucose outside reference range Active 201804/27/2023 - Improved - Gwen Pelayo MD - A1c in the normal range this time around. Normal renal function. Reviewed lab results. Vitamin D has also normalized. Will reduce high-dose vitamin D replacement to weekly from 3 times a week. Problem Code: R73.09; Problem Code Type: ICD-10; Not Available [facility] 3 05:51:34 Pain in thoracic spine Active 201810/24/2019 - Comments only - Gwen Pelayo MD - And left leg pain. Advised consideration of home PT which he was reluctant to consider. Problem Code: M54.9; Problem Code Type: ICD-10; Not Available [facility] 3 05:51:34 Vitamin D deficiency Active 201804/27/2023 - Comments only - Gwen Pelayo MD - See above. Problem Code: E55.9; Problem Code Type: ICD-10; Not Available [facility] 3 05:51:34 History of fall Active 201911/02/2020 - Comments only - Gwen Pelayo MD - discussed fall prevention strategies. Problem Code: Z91.81; Problem Code Type: ICD-10; Not Available [facility] 3 05:51:35 Counseling Active 202010/07/2021 - Comments only - Gwen Pelayo MD - he rec'd Covid booster (Moderna) and flu vaccine today. Problem Code: Z71.89; Problem Code Type: ICD-10; Not Available [facility] 3 05:51:35 Pain of left knee joint Completed 202010/14/2021 10/07/2021 - Comments only - Gwen Pelayo MD - continue strengthening exercises. Reviewed indications for re-evaluation . Problem Code: M25.562; Problem Code Type: ICD-10; Not Available [facility] 3 05:51:35 Hyperlipidemi a screening Active 2021 Problem Code: Z13.220; Problem Code Type: ICD-10; Not Available [facility] 3 05:51:35 COVID-19 Completed 202103/09/2022 03/01/2022 - Comments only - Gwen Pelayo MD - He is fortunately had a relatively mild infection. Is outside of the window for treatment. Advised booster dose when he feels ready, and earlier notification of any recurrent infections. Problem Code: U07.1; Problem Code Type: ICD-10; Not Available [facility] 3 05:51:35 Disorder of plasma protein metabolism Active 202105/29/2022 - Comments only - Gwen Pelayo MD - Diet does not sound like it is lacking in protein by description. Will check urine for proteinuria. Problem Code: E88.09; Problem Code Type: ICD-10; Not Available [facility] 3 05:51:36 Dysuria Completed 202201/30/2023 01/24/2023 - Improved - Gwen Pelayo MD - He will complete full week course of Bactrim. Reviewed indications for urine culture including return of symptoms. Problem Code: R30.0; Problem Code Type: ICD-10; Not Available [facility] 3 05:51:36 Ischemic infarction of muscle Active 2022 Problem Code: M62.252; Problem Code Type: ICD-10; Not Available [facility] 3 05:51:36 Disorder of tooth development Active 2022 Problem Code: K00.9; Problem Code Type: ICD-10; Not Available [facility] 3 05:51:36 Periapical abscess Active 202207/04/2023 - Comments only - Gwen Pelayo MD - We will treat again with penicillin. Strongly urged follow-up dental care. He states they have told him he needs to see an oral surgeon, but he does not feel he can get to 1. He would like to focus on weight loss and then we access dental care. Problem Code: K04.7; Problem Code Type: ICD-10; Not Available [facility] 3 05:51:36 Screening for disorder Completed 201603/13/2019 Problem Code: Z13.9; Problem Code Type: ICD-10; Not Available [facility] 3 05:51:40 Hypertensive disorder Completed 200808/01/2023 Not Available [facility] 3 05:51:42 Morbid obesity Completed 200808/01/2023 Not Available [facility] 3 05:51:43 Impaired glucose tolerance Completed 201703/13/2019 Problem Code: R73.02; Problem Code Type: ICD-10; Not Available [facility] 3 05:51:54 Acute viral pharyngitis Active [address], [place], [phone] , [facility]. 4 14:51:27 Atopic dermatitis Active [address], [place], [address] , [place] - [facility]. 17:56:32 Notes:*Problem Name: Large M ass L Knee/leg *ICD-10 Codes: *Problem Status: inactive *Comments: 02/19/2017 - Comments only - Gwen Pelayo MD - with intermittent torsion of its [...] Recorded Time Tdap 05/29/2022 completed Not Available [facility] 05:41:34 Influenza, split virus, trivalent, preservative 09/24/2015 completed Not Available [facility] 09/14/2023 05:41:35 Influenza, split virus, quadrivalent, PF 10/07/2021 completed Not Available [facility] 09/14/2023 05:41:35 COVID-19, mRNA, LNP-S, PF, 100 mcg/0.5mL dose or 50 mcg/0.25mL dose 03/29/2022 completed Not Available [facility] 09/14/20 05:41:36 COVID-19, mRNA, LNP-S, PF, 100 mcg/0.5mL dose or 50 mcg/0.25mL dose 10/07/2021 completed Not Available [facility] 09/14/20 05:41:37 COVID-19 vaccine, vector-nr, rS-Ad26, PF, 0.5 mL 04/15/2021 completed Not Available [facility] 09/14/2023 05:41:37 Past Encounters Encounter ID Performer Location Encounter Start Date Encounter Closed Date Diagnosis/Indication Diagnosis SNOMED-CT Code [id number] GWEN PELAYO MD [address] [phone] 04/29/2024 17:29:08 05/06/2024 16:38:02 Atopic dermatitis [id number] Health Concerns Section Related Observation LastModified by Organization Detai ls LastModified Time None Recorded Concern Status LastModified by Organization Details LastModified Time None Recorded Payers Encounter Date Sequence Insurance Name Policy Number Policy Jeffery Covered Member ID Jeffery Member ID Guarantor Name 04/29/2024 1 [employer] (MEDICAID) Melquiades Elias [id number] Melquiades Elias Notes Date Note Type Note Provider Name and Address Organization Details Recorded Time 04/29/2024 text/html HPI Notes: Henry nt seen at home for 2-week history of itchy and slightly painful rash that started on his dorsal hands and spread to his feet and up his arms. It spares other parts of his body. He denies any recollection of insect bite or injury to the skin preceding rash, there was no preceding illness, and has had no known sick contacts. Other household members have not had any rash. He has no history of eczema or other skin conditions and there is no family history of autoimmune disorders. He is housebound due to extreme obesity and a large leg pannus that severely limits his mobility as well as generalized anxiety. He reports that a few of the lesions developed blisters and then popped and bled a bit. GWEN PELAYO MD [address], [place], [address], [facility]. 04/30/2024 12:10:12
--- OUTSIDE RECORDS SUMMARY | 2024-06-20 16:53 | XMS_ITS | Data Portability ---
Author Organization [place] - [facility] Address [place] [address] Assessment No assessment recorded. Plan of Treatment Reminders Order Date Submit Date Provider Last Modified By Organization Details Last Modified Time Details Appointments Nurse Visit 20 2023 10:00A M Not available Not available Not available Lab venipunct ure 2023 024 [email or web address] Not available 06/20/2024 13:46:29 Referral None recorded. Procedures None recorded. Surgeries None recorded. Imaging None recorded. Medication Orders betametha sone dipropion ate 0.05 % topical cream 2023 024 [id number], [address], [place], [place], [id number], 04/29/2024 17:57:57 Patient TargetsNo targets recorded. Patient InstructionsNo instructions recorded. Reason for Referral None Reported. Problems Name Status Onset Date Resolution Date Notes Provider Name and Address Organization Details Recorded Time Severe obesity Active 2008 Problem Code: E66.01; Problem Code Type: ICD-10; Not Available [facility] 3 05:51:33 Essential hypertension Active 200804/27/2023 - Comments only - Gwen Pelayo MD - I did not have a blood pressure cuff with me today. Will check at follow-up in 1 month. Continue current medication. Problem Code: I10; Problem Code Type: ICD-10; Not Available [facility] 3 05:51:33 Generalized anxiety disorder Active 201305/29/2022 - Comments only - Gwen Pelayo MD - With generalized social phobia. Reports good results with sertraline. Still not leaving the apartment much but not interested in connecting with a therapist at this time. Problem Code: F41.1; Problem Code Type: ICD-10; Not Available [facility] 3 05:51:33 Localized adiposity Active 201301/24/2023 - [...] Problem Code Type: ICD-10; Not Available [facility] 3 05:51:33 Pain of left hip joint Active 2014 Problem Code: M25.552; Problem Code Type: ICD-10; Not Available [facility] 3 05:51:33 Acute upper respiratory infection Completed 201406/24/2015 Problem Code: J06.9; Problem Code Type: ICD-10; Not Available [facility] 3 05:51:34 Generalized social phobia Active 201410/07/2021 - Unchanged - Gwen Pelayo MD - See above. Problem Code: F40.11; Problem Code Type: ICD-10; Not Available [facility] 3 05:51:34 Dysuria Completed 201606/26/2017 Problem Code: R30.0; Problem Code Type: ICD-10; Not Available [facility] 3 05:51:34 Blood glucose outside reference range Active 201804/27/2023 - Improved - Gwen Pelayo MD - A1c in the normal range this time around. Normal renal function. Reviewed lab results. Vitamin D has also normalized. Will reduce high-dose vitamin D replacement to weekly from 3 times a week. Problem Code: R73.09; Problem Code Type: ICD-10; Not Available [facility] 3 05:51:34 Pain in thoracic spine Active 201810/24/2019 - Comments only - Gwen Pelayo MD - And left leg pain. Advised consideration of home PT which he was reluctant to consider. Problem Code: M54.9; Problem Code Type: ICD-10; Not Available [facility] 3 05:51:34 Vitamin D deficiency Active 201804/27/2023 - Comments only - Gwen Pelayo MD - See above. Problem Code: E55.9; Problem Code Type: ICD-10; Not Available [facility] 3 05:51:34 History of fall Active 201911/02/2020 - Comments only - Gwen Pelayo MD - discussed fall prevention strategies. Problem Code: Z91.81; Problem Code Type: ICD-10; Not Available [facility] 3 05:51:35 Counseling Active 202010/07/2021 - Comments only - Gwen Pelayo MD - he rec'd Covid booster (Moderna) and flu vaccine today. Problem Code: Z71.89; Problem Code Type: ICD-10; Not Available [facility] 3 05:51:35 Pain of left knee joint Completed 202010/14/2021 10/07/2021 - Comments only - Gwen Pelayo MD - continue strengthening exercises. Reviewed indications for re-evaluation . Problem Code: M25.562; Problem Code Type: ICD-10; Not Available [facility] 3 05:51:35 Hyperlipidemi a screening Active 2021 Problem Code: Z13.220; Problem Code Type: ICD-10; Not Available [facility] 3 05:51:35 COVID-19 Completed 202103/09/2022 03/01/2022 - Comments only - Gwen Pelayo MD - He is fortunately had a relatively mild infection. Is outside of the window for treatment. Advised booster dose when he feels ready, and earlier notification of any recurrent infections. Problem Code: U07.1; Problem Code Type: ICD-10; Not Available [facility] 3 05:51:35 Disorder of plasma protein metabolism Active 202105/29/2022 - Comments only - Gwen Pelayo MD - Diet does not sound like it is lacking in protein by description. Will check urine for proteinuria. Problem Code: E88.09; Problem Code Type: ICD-10; Not Available [facility] 3 05:51:36 Dysuria Completed 202201/30/2023 01/24/2023 - Improved - Gwen Pelayo MD - He will complete full week course of Bactrim. Reviewed indications for urine culture including return of symptoms. Problem Code: R30.0; Problem Code Type: ICD-10; Not Available [facility] 3 05:51:36 Ischemic infarction of muscle Active 2022 Problem Code: M62.252; Problem Code Type: ICD-10; Not Available [facility] 3 05:51:36 Disorder of tooth development Active 2022 Problem Code: K00.9; Problem Code Type: ICD-10; Not Available [facility] 3 05:51:36 Periapical abscess Active 202207/04/2023 - [...] K04.7; Problem Code Type: ICD-10; Not Available [facility] 3 05:51:36 Screening for disorder Completed 201603/13/2019 Problem Code: Z13.9; Problem Code Type: ICD-10; Not Available [facility] 3 05:51:40 Hypertensive disorder Completed 200808/01/2023 Not Available [facility] 3 05:51:42 Morbid obesity Completed 200808/01/2023 Not Available [facility] 3 05:51:43 Impaired glucose tolerance Completed 201703/13/2019 Problem Code: R73.02; Problem Code Type: ICD-10; Not Available [facility] 3 05:51:54 Acute viral pharyngitis Active 2023 GWEN PELAYO MD [address], [place], [address] , [facility] 4 14:51:27 Atopic dermatitis Active 2023 GWEN PELAYO MD [address], [place], [address] , [facility] 4 17:56:32 Notes:*Problem Name: Large [...] Available [employer] Pen Needle 32 gauge x 4 Use 1 needle subcutane ously once a [...] Recorded Time Tdap 05/29/2022 completed Not Available [facility] 05:41:34 Influenza, split virus, trivalent, preservative 09/24/2015 completed Not Available [facility] 09/14/2023 05:41:35 Influenza, split virus, quadrivalent, PF 10/07/2021 completed Not Available [facility] 09/14/2023 05:41:35 COVID-19, mRNA, LNP-S, PF, 100 mcg/0.5mL dose or 50 mcg/0.25mL dose 03/29/2022 completed Not Available [facility] 09/14/20 05:41:36 COVID-19, mRNA, LNP-S, PF, 100 mcg/0.5mL dose or 50 mcg/0.25mL dose 10/07/2021 completed Not Available [facility] 09/14/20 05:41:37 COVID-19 vaccine, vector-nr, rS-Ad26, PF, 0.5 mL 04/15/2021 completed Not Available [facility] 09/14/2023 05:41:37 Past Encounters Encounter ID Performer Location Encounter Start Date Encounter Closed Date Diagnosis/Indication Diagnosis SNOMED-CT Code [id number] GWEN PELAYO MD [address] [address] 03/18/2024 13:40:07 03/18/2024 16:09:10 Acute viral pharyngitis [id number] GWEN PELAYO MD [address] [address] 04/29/2024 17:29:08 05/06/2024 16:38:02 Atopic dermatitis [id number] Lo Broussardd [address] [address] 06/20/2024 13:43:57 06/20/2024 14:48:00 Essential hypertension 83202751 Diabetes m ellitus screening [id number] Health Concerns Section Related Observation LastModified by Organization Detai ls LastModified Time None Recorded Concern Status LastModified by Organization Details LastModified Time None Recorded Advance Directives Directive None Recorded Payers Encounter Date Sequence Insurance Name Policy Number Policy Jeffery Covered Member ID Jeffery Member ID Guarantor Name 03/18/2024 1 [facility] (MEDICAID) Melquiades E Curt [id number] Melquiades E Curt 04/29/2024 1 [facility] ([employer]) Melquiades E Curt [id number] Melquiades E Curt 06/20/2024 1 [employer] ([employer]ICA[employer]) Melquiades E Curt [id number] Melquiades E Curt Notes Date Note Type Note Provider Name and Address Organization Details Recorded Time 03/18/2024 text/html HPI Notes: Henry nt seen for home visit for sore throat. Symptoms started 4 days ago as a tickle in his throat with a dry cough. No fevers or chills, or other URI symptoms. His brother had laryngitis last week. No other known sick contacts. Symptoms are improving now. MD [address], [place], [address], [facility]. 03/18/2024 14:52:17 04/29/2024 text/html HPI Notes: Henry nt seen [...] and then popped and bled a bit. MD [address], [place], [address], [facility]. 04/30/2024 12:10:12
== END 2024-06-20 16:36 | disposition home or self-care (01) ==
LOC: NCHCN 16:35
PROVIDERS: PCP Family Medicine; Visit Provider Family Medicine
DX: I10 Essential (primary) hypertension (principal); Z13.1 Encounter for screening for diabetes mellitus
CPT/HCPCS: 80053; 83036

== ENCOUNTER 2025-09-24 18:51 | Outpatient (REF) | payer MEDICAID, SELFPAY ==
[2025-09-24 20:45] LABS: Vitamin D 25 Total 52 ng/mL (30-100)
[2025-09-24 20:46] LABS: ALT 19 U/L (10-49); AST 33 U/L (<34); Albumin 3.7 g/dL (3.4-5.0); Alkaline Phosphatase 88 U/L (46-116); Anion Gap 5.8 mmol/L (3-11); BUN 18 mg/dL (9-23); Bilirubin, Total 0.50 mg/dL (0.2-1.2); CO2 31.2 mmol/L (20.0-31.0); Calcium 8.8 mg/dL (8.3-10.6); Chloride 101 mmol/L (98-107); Cholesterol 95 mg/dL (<200); Glucose 116 mg/dL (74-106); HDL Cholesterol 47 mg/dL (>40); Potassium 4.1 mmol/L (3.5-5.1); Sodium 138 mmol/L (136-145); Total Protein 8.1 g/dL (5.7-8.2)
[2025-09-24 20:54] LABS: Hemoglobin A1C 5.2 % (<5.7)
== END 2025-09-24 18:52 | disposition home or self-care (01) ==
LOC: NCHCN 18:51
PROVIDERS: PCP Family Medicine; Visit Provider Family Medicine
DX: I10 Essential (primary) hypertension (principal); R73.03 Prediabetes; E55.9 Vitamin D deficiency, unspecified; Z13.220 Encounter for screening for lipoid disorders
CPT/HCPCS: 80053; 80061; 82306; 83036